=== PATIENT | female | born 1935 | race Caucasian/White ===

== ENCOUNTER → 2017-10-18 | Outpatient (CLI) | payer MEDICARE, BC ==
[~2017-10-18] MED LIST: APAP650 PO; ASPIR 8181 MG PO; CARDIZEM CD 18180 M3 PO; CRESTOR5 MG PO; ENALAPRIL MALEAT5 M1 PO; METAMUCIL PAC1 UDPKT PO; SAVAYSA15 MG PO; SIMVASTATIN40 MG PO; TRAMADOL 50 MG50 MG PO
--- NOTE | 2017-10-18 11:38 | 2DMMODE ---
[place] [address] 2 D/M-MODE ECHOCARDIOGRAM Name: WES EDWARD Room: [facility]#: [id number] Admission: 10/18/17 Attend Phys: Nav Roman, Discharge: Date of : 39 Date of Service: 10/18/17 1138 Report #: [id number] THIS REPORT FOR: //name// APPROVED REPORT Study performed: 10/18/2017 10:04:56 EXAM: Comprehensive 2D, Doppler, and color-flow Echocardiogram BSA: 1.57 HR: 79 bpm BP: 162/80 mmHg Other Information Study Quality: Good Indications Mitral Valve Disease 2D Dimensions LVEF(%): 68.83 (>50%) IVSd: 10.12 (7-11mm) LVOT Diam: 20.57 (18-24mm) LVDd: 40.39 mm PWd: 9.65 (7-11mm) Ascending Ao: 28.23 (22-36mm) LVDs: 25.00 (25-40mm) Aortic Root: 24.82 mm Santa's LVEF: 68.83 % Volumes Left Atrial Volume (Systole) LA ESV Index: 20.20 mL/m2 Aortic Valve AoV Peak Baljeet.: 1.13 m/s AO Peak Gr.: 5.09 mmHg LVOT Max P.83 mmHg AO Mean Gr.: 2.77 mmHg LVOT Mean P.33 mmHg LVOT Max V: 0.84 m/s AO V2 VTI: 25.04 cm LVOT Mean V: 0.53 m/s AMADEO (VTI): 2.68 cm2 LVOT V1 VTI: 20.22 cm Mitral Valve E/A Ratio: 1.09 MV Decel. Time: 203.05 ms MV E Max Baljeet.: 0.64 m/s MV PHT: 58.88 [place] [address] 2 D/M-MODE ECHOCARDIOGRAM Name: LINDSEYCASEYWES Room: [facility]#: [id number] Admission: 10/18/17 Attend Phys: Nav Roman, Discharge: Date of : 39 Date of Service: 10/18/17 1138 Report #: [id number] MVA (PHT): 3.74 cm2 TDI E/Lateral E': 4.92 E/Medial E': 7.11 Medial E' Baljeet.: 0.09 m/s Lateral E' Baljeet.: 0.13 m/s Pulmonary Valve PV Peak Baljeet.: 0.96 m/s PV Peak Gr.: 3.71 mmHg Tricuspid Valve TR Peak Gr.: 26.60 mmHg RVSP: 31.60 mmHg Left Ventricle The left ventricle is normal size. There is normal LV segmental wall motion. There is normal left ventricular wall thickness. Left ventricular systolic function is normal. The left ventricular ejection fraction is within the normal range. LVEF is 55-60%. The left ventricular diastolic function is normal. Right Ventricle The right ventricle is normal size. The right ventricular systolic function is normal. Atria The left atrium size is normal. The right atrium size is normal. Aortic Valve Mild aortic valve sclerosis. Mild aortic regurgitation. There is no aortic valvular stenosis. Mitral Valve The mitral valve is normal in structure. Mild to moderate mitral regurgitation. No evidence of mitral valve stenosis. Tricuspid Valve The tricuspid valve is normal in structure. Mild tricuspid regurgitation. The RVSP is __31.6 mmHg. Pulmonic Valve The pulmonary valve is normal in structure. There is no pulmonic valvular regurgitation. Great Vessels The aortic root is normal in size. IVC [place] [address] 2 D/M-MODE ECHOCARDIOGRAM Name: LINDSEYWES PEÑA Room: [facility] Cooper#: [id number] Admission: 10/18/17 Attend Phys: Nav Roman, Discharge: Date of : 39 Date of Service: 10/18/17 1138 Report #: [id number] collapses with >50% inspiration Pericardium There is no pericardial effusion. <Conclusion> The left ventricle is normal size. There is normal left ventricular wall thickness. Left ventricular systolic function is normal. The left ventricular ejection fraction is within the normal range. LVEF is 55-60%. The left ventricular diastolic function is normal. The right ventricle is normal size. The left atrium size is normal. Mild aortic valve sclerosis. Mild aortic regurgitation. There is no aortic valvular stenosis. The mitral valve is normal in structure. Mild to moderate mitral regurgitation. No evidence of mitral valve stenosis. The tricuspid valve is normal in structure. Mild tricuspid regurgitation. The RVSP is __31.6 mmHg. IVC is normal in size and collapses with >50% inspiration There is no pericardial effusion. There is normal LV segmental wall motion. <ELECTRONICALLY SIGNED> By: Colin Biggs MD, FACC 10/18/17 1138 1138 1138 Colin Biggs MD, FACC /INF
== END ==
LOC: M.CRD 10:00
DX: I08.3 Combined rheumatic disorders of mitral, aortic and tricuspid valves (principal)

== ENCOUNTER 2018-08-02 16:54 | Observation (INO) | payer MEDICARE, BC ==
[~2018-08-02] VITALS: Ht 157.5 cm; Wt 56.7 kg
[~2018-08-02 16:54] MED LIST changes: -APAP650 PO; -CARDIZEM CD 18180 M3 PO; -CRESTOR5 MG PO; -SAVAYSA15 MG PO
[2018-08-02 16:57] VITALS: BP 143/110
[2018-08-02] MEDS ORDERED: CRESTOR5 MG PO (17:02)
[2018-08-02] MEDS ORDERED: CARDIZEM CD 18180 M3 PO (17:03)
[2018-08-02] MEDS ORDERED: APAP650 PO (17:03)
[2018-08-02] MEDS ORDERED: SAVAYSA15 MG PO (17:03)
[2018-08-02 17:38] LABS: ABSOLUTE BASOPHILS 0.1 thou/uL (0.0-0.2); ABSOLUTE LYMPHOCYTES 1.3 thou/uL (0.8-5.3); ABSOLUTE MONOCYTES 0.6 thou/uL (0.0-1.2); ABSOLUTE NEUTROPHILS 4.6 thou/uL (1.6-8.1); BASOPHILS 0.8 %; EOSINOPHILS 0.7 %; HEMATOCRIT 42.2 % (37.0-47.0); MCH 32.2 pg (26.0-34.0); MCHC 33.3 g/dL (28.0-37.0); MCV 96.9 fL (80.0-100.0); MONOCYTES 9.4 %; NUCLEATED RBCS 0 /100WBC; PLATELET COUNT* 277 thou/uL (150-400); POLYS 69.1 %; RBC 4.36 mil/uL (4.20-5.00); RDW-CV 12.7 % (10.5-14.5); WBC 6.6 thou/uL (4.0-11.0)
[2018-08-02 17:45] LABS: ANION GAP 6 mmol/L (7-16); BUN 16 mg/dL (7-18); CALCIUM 9.6 mg/dL (8.5-10.1); CHLORIDE 102 mmol/L (98-107); CO2 29 mmol/L (21-32); CREATININE 0.9 mg/dL (0.6-1.3); GLUCOSE 95 mg/dL (70-99); POTASSIUM 4.2 mmol/L (3.5-5.1); SODIUM 137 mmol/L (136-145)
[2018-08-02 17:48] LABS: APTT 30.3 Seconds (25.0-31.3); INR 1.1; PROTIME 11.3 Seconds (9.20-11.50)
[2018-08-02 17:55] LABS: ALBUMIN 4.3 g/dL (3.4-5.0); ALKALINE PHOSPHATASE 65 U/L (46-116); LIPASE 164 U/L (73-393); NT-PRO BRAIN NAT PEPTIDE 707 pg/mL (<300); SGOT 20 U/L (15-37); SGPT 25 U/L (30-65); TOTAL BILIRUBIN 0.3 mg/dL (<0.1-1.0); TOTAL PROTEIN 8.4 g/dL (6.4-8.2); TROPONIN-I LEVEL <0.06 ng/mL (<0.06)
[2018-08-02 20:10] VITALS: BP 128/82
[2018-08-02 20:30] VITALS: BP 142/64
[2018-08-03] VITALS: BP 117/51
[2018-08-03 01:15] LABS: ALBUMIN 3.3 g/dL (3.4-5.0); CREATININE 0.9 mg/dL (0.6-1.3); MAGNESIUM 2.1 mg/dL (1.8-2.4); POTASSIUM 4.6 mmol/L (3.5-5.1); TOTAL BILIRUBIN 0.2 mg/dL (<0.1-1.0); TOTAL PROTEIN 6.2 g/dL (6.4-8.2)
--- NOTE | 2018-08-03 01:33 | NUR ---
PATIENT RESTED IN BED, NO ACUTE CHANGES. PATIENT DID NOT SHOW SIGNS OF DISTRESS. PATIENT DID NOT COMPALIN OF SOA OR WEAKNESS. PATIENT IS RUNNING SINUS RHYTHM. FALL PRECAUTIONS IN PLACE, CALL LIGHT WITH IN REACH, HOURLY ROUNDING OBSERVED.
[2018-08-03 02:22] LABS: HEMATOCRIT 35.9 % (37.0-47.0); MCH 32.3 pg (26.0-34.0); MCHC 33.3 g/dL (28.0-37.0); MCV 96.9 fL (80.0-100.0); MPV 9.6 fl. (7.2-11.1); RBC 3.7 mil/uL (4.20-5.00); RDW-CV 12.4 % (10.5-14.5); WBC 6.9 thou/uL (4.0-11.0)
[2018-08-03 04:00] VITALS: BP 126/50
[2018-08-03 08:00] VITALS: BP 127/68
[2018-08-03 12:06] VITALS: BP 139/52
--- NOTE | 2018-08-03 12:14 | NUR ---
Pt is A&O. Resides at home alone. Independent with ADLs. Pt continues to drive some, but states that her son is available to drive her if needed. Pt has a cleaning lady. No DME. No hx of HH or SNF. Goal is to return home at dc. Pt is hopeful to dc today. Pt scheduled to have an ultrasound today. No needs anticipated. Following.
[2018-08-03 12:25] VITALS: BP 142/89
--- NOTE | 2018-08-03 13:10 | NUR ---
ASSESSMENT CHARTED. AFEBRILE. PT CONVERTED TO NSR. DENIES CHEST PAIN. CARDIOLOGY SIGNED OFF AND D/C WITH SCRIPT. PT D/C AT 1315 THIS AFTERNOON. D/C PAPERWORK AND SCRIPT GIVEN AND ALL QUESTIONS ANSWERED.
--- NOTE | 2018-08-03 18:00 | EKG ---
[place] [address] ELECTROCARDIOGRAM REPORT Name: WES EDWARD Room: [address]#: [id number] Admission: 08/02/18 Attend Phys: Sultana Hagen MD Discharge: 08/03/18 Date of : 39 Report #: [id number] THIS REPORT FOR: //name// [facility] ED Test Date: 2018-08-02 Test Time: 16:59:37 Pat Name: WES EDWARD Department: Room: [facility] Gender: F Specialty Sales Consultant: : 1935 Requested By: Kathy Last Order Number: [id number] MD: Hola Huggins Measurements Intervals [place] Rate: 134 P: -80 AR: 139 QRS: 69 QRSD: 94 T: -26 QT: 256 QTc: 382 Interpretive Statements atrial flutter Repolarization abnormality, prob rate related Compared to ECG 11/09/2014 08:28:11 ST (T wave) deviation now present Sinus rhythm no longer present Electronically Signed On 08-03-2018 18:00:12 CDT by Hola Huggins [email or web address] <ELECTRONICALLY SIGNED> By: Hola Huggins MD, [facility] 08/03/18 1800 1659 1659 Hola Huggins MD, [facility] /EPI
== END 2018-08-03 13:16 | disposition home or self-care (01) ==
LOC: M.ERS 16:54 → M.TBA-ER 18:37 → M.2W 18:37
PROVIDERS: Personal Emergency Response Attendant; ADMIT Internal Medicine
DX: I48.0 Paroxysmal atrial fibrillation (principal); I10 Essential (primary) hypertension; E78.5 Hyperlipidemia, unspecified; F41.9 Anxiety disorder, unspecified; M19.90 Unspecified osteoarthritis, unspecified site; Z79.82 Long term (current) use of aspirin

== ENCOUNTER → 2018-08-29 | Outpatient (CLI) | payer MEDICARE, BC ==
[~2018-08-29] MED LIST changes: +APAP650 PO; +CARDIZEM CD 18180 M3 PO; +CRESTOR5 MG PO; +SAVAYSA15 MG PO
--- NOTE | 2018-08-29 15:10 | 2DMMODE ---
[place] [address] 2 D/M-MODE ECHOCARDIOGRAM Name: WES EDWARD Room: [facility]#: [id number] Admission: 08/29/18 Attend Phys: Meena Duval, Discharge: Date of : 39 Date of Service: 08/29/18 1510 Report #: [id number] THIS REPORT FOR: //name// APPROVED REPORT Study performed: 08/29/2018 13:07:23 EXAM: Comprehensive 2D, Doppler, and color-flow Echocardiogram Patient Location: Out-Patient Status: routine BSA: 1.56 HR: 70 bpm BP: 142/80 mmHg Other Information Study Quality: Good Indications Mitral Valve Disease Atrial Fibrillation 2D Dimensions IVSd: 10.21 (7-11mm) LVOT Diam: 20.15 (18-24mm) LVDd: 41.64 mm PWd: 9.18 (7-11mm) Ascending Ao: 24.82 (22-36mm) LVDs: 27.77 (25-40mm) Aortic Root: 26.82 mm Volumes Left Atrial Volume (Systole) LA ESV Index: 20.90 mL/m2 Aortic Valve AoV Peak Baljeet.: 1.01 m/s AO Peak Gr.: 4.12 mmHg LVOT Max P.76 mmHg AO Mean Gr.: 1.81 mmHg LVOT Mean P.36 mmHg LVOT Max V: 0.83 m/s AO V2 VTI: 20.02 cm LVOT Mean V: 0.54 m/s AMADEO (VTI): 3.32 cm2 LVOT V1 VTI: 20.87 cm AI Pondera: 2.65 m/s2 AI PHT: 447.15 ms Mitral Valve E/A Ratio: 1.16 [place] [address] 2 D/M-MODE ECHOCARDIOGRAM Name: WES EDWARD Room: [facility]#: [id number] Admission: 08/29/18 Attend Phys: Meena Duval, Discharge: Date of : 39 Date of Service: 08/29/18 1510 Report #: [id number] MV Decel. Time: 171.97 ms MV E Max Baljeet.: 0.71 m/s MV PHT: 49.87 ms MVA (PHT): 4.41 cm2 TDI E/Lateral E': 5.07 E/Medial E': 7.10 Medial E' Baljeet.: 0.10 m/s Lateral E' Baljeet.: 0.14 m/s Pulmonary Valve PV Peak Baljeet.: 0.91 m/s PV Peak Gr.: 3.29 mmHg Tricuspid Valve RAP Estimate: 5.00 mmHg TR Peak Gr.: 24.79 mmHg RVSP: 29.79 mmHg PA Pressure: 29.79 mmHg Left Ventricle The left ventricle is normal size. There is normal LV segmental wall motion. There is normal left ventricular wall thickness. Left ventricular systolic function is normal. The left ventricular ejection fraction is within the normal range. LVEF is 55-60%. The left ventricular diastolic function is normal. Right Ventricle The right ventricle is normal size. The right ventricular systolic function is normal. Atria The left atrium size is normal. The right atrium size is normal. Aortic Valve The aortic valve is normal in structure. Mild aortic regurgitation. There is no aortic valvular stenosis. Mitral Valve The mitral valve is normal in structure. Mild mitral regurgitation. No evidence of mitral valve stenosis. Tricuspid Valve The tricuspid valve is normal in structure. Mild tricuspid regurgitation. estimate pa pressure 40 [place] [address] 2 D/M-MODE ECHOCARDIOGRAM Name: WES EDWARD Room: [facility]#: [id number] Admission: 08/29/18 Attend Phys: Meena Duval, Discharge: Date of : 39 Date of Service: 08/29/18 1510 Report #: [id number] The pulmonary valve is normal in structure. Mild pulmonic regurgitation. Great Vessels The aortic root is normal in size. IVC is normal in size and collapses >50% with inspiration. Pericardium There is no pericardial effusion. <Conclusion> LVEF is 55-60%. Mild aortic regurgitation. Mild mitral regurgitation. Mild tricuspid regurgitation. estimate pa pressure 40 mm Hg <ELECTRONICALLY SIGNED> By: Hola Huggins MD, FACC 08/29/181509 09 09 Hola Huggins MD, FACC /INF
== END ==
LOC: M.CRD 12:37
DX: I08.3 Combined rheumatic disorders of mitral, aortic and tricuspid valves (principal); I48.0 Paroxysmal atrial fibrillation

== ENCOUNTER → 2020-04-22 | Outpatient (CLI) | payer MEDICARE, BC ==
--- NOTE | 2020-04-22 14:26 | 2DMMODE ---
[place] [address] 2 D/M-MODE ECHOCARDIOGRAM Name: WES EDWRAD Room: [facility]#: [id number] Admission: 04/22/20 Attend Phys: Meena Duval, Discharge: Date of : 39 Date of Service: 04/22/20 1426 Report #: [id number] THIS REPORT FOR: cc: Eugene Duran,Eugene Maradiaga,Hola Villarreal MD [facility] ~ APPROVED REPORT Study performed: 04/22/2020 13:07:05 EXAM: Comprehensive 2D, Doppler, and color-flow Echocardiogram Patient Location: Out-Patient BSA: 1.56 HR: 71 bpm BP: 105/55 mmHg Other Information Study Quality: Good Indications Mitral Valve Disease 2D Dimensions IVSd: 9.59 (7-11mm) LVOT Diam: 20.89 (18-24mm) LVDd: 41.18 mm PWd: 9.82 (7-11mm) Ascending Ao: 28.77 (22-36mm) LVDs: 28.33 (25-40mm) Aortic Root: 24.11 mm Volumes Left Atrial Volume (Systole) LA ESV Index: 14.50 mL/m2 Aortic Valve AoV Peak Baljeet.: 1.05 m/s AO Peak Gr.: 4.42 mmHg LVOT Max P.00 mmHg AO Mean Gr.: 2.28 mmHg LVOT Mean P.51 mmHg LVOT Max V: 0.87 m/s AO V2 VTI: 21.91 cm LVOT Mean V: 0.57 m/s AMADEO (VTI): 3.27 cm2 LVOT V1 VTI: 20.89 cm AI Cassia: 2.04 m/s2 AI PHT: 571.21 [place] [address] 2 D/M-MODE ECHOCARDIOGRAM Name: WES EDWARD Room: [facility]#: [id number] Admission: 04/22/20 Attend Phys: Meena Duval, Discharge: Date of : 39 Date of Service: 04/22/20 1426 Report #: [id number] Mitral Valve E/A Ratio: 0.93 MV Decel. Time: 192.69 ms MV E Max Baljeet.: 0.57 m/s MV PHT: 55.88 ms MVA (PHT): 3.94 cm2 TDI E/Lateral E': 4.07 E/Medial E': 5.70 Medial E' Baljeet.: 0.10 m/s Lateral E' Baljeet.: 0.14 m/s Pulmonary Valve PV Peak Baljeet.: 0.94 m/s PV Peak Gr.: 3.50 mmHg Tricuspid Valve RAP Estimate: 5.00 mmHg TR Peak Gr.: 23.66 mmHg RVSP: 28.66 mmHg PA Pressure: 28.66 mmHg Left Ventricle The left ventricle is normal size. There is normal LV segmental wall motion. There is normal left ventricular wall thickness. Left ventricular systolic function is normal. The left ventricular ejection fraction is within the normal range. LVEF is 55-60%. Grade I - abnormal relaxation pattern. Right Ventricle The right ventricle is normal size. The right ventricular systolic function is normal. Atria The left atrium size is normal. The right atrium size is normal. Aortic Valve The aortic valve is normal in structure. Mild aortic regurgitation. There is no aortic valvular stenosis. Mitral Valve The mitral valve is normal in structure. Mild mitral regurgitation. No evidence of mitral valve stenosis. Tricuspid Valve The tricuspid valve is normal in structure. Mild tricuspid regurgitation. estimated pa pressure 30 [place] [address] 2 D/M-MODE ECHOCARDIOGRAM Name: WES EDWARD Room: [facility]#: [id number] Admission: 04/22/20 Attend Phys: Meena Duval, Discharge: Date of : 39 Date of Service: 04/22/20 1426 Report #: [id number] Pulmonic Valve The pulmonary valve is normal in structure. Trace pulmonic regurgitation. Great Vessels The aortic root is normal in size. IVC is normal in size and collapses >50% with inspiration. Pericardium There is no pericardial effusion. <Conclusion> LVEF is 55-60%. Mild aortic regurgitation. Mild mitral regurgitation. <ELECTRONICALLY SIGNED> By: Hoal Huggins MD, [facility] 04/22/20 1426 1426 1426 Hola Huggins MD, FACC /INF
== END ==
LOC: M.CRD 13:00
PROVIDERS: ATTEND Nurse Practitioner
DX: I08.3 Combined rheumatic disorders of mitral, aortic and tricuspid valves (principal)

== ENCOUNTER 2020-08-15 10:58 | Emergency (ER) | payer MEDICARE, BC ==
[~2020-08-15] VITALS: Ht 157.5 cm; Wt 55.8 kg
[2020-08-15 11:17] LABS: ABSOLUTE BASOPHILS 0.1 thou/uL (0.0-0.2); ABSOLUTE LYMPHOCYTES 1.5 thou/uL (0.8-5.3); ABSOLUTE MONOCYTES 0.7 thou/uL (0.0-1.2); BASOPHILS 0.9 %; EOSINOPHILS 0.5 %; HEMATOCRIT 44.7 % (37.0-47.0); LYMPHOCYTES 18.3 %; MCH 31.3 pg (26.0-34.0); MCHC 33.5 g/dL (28.0-37.0); MCV 93.4 fL (80.0-100.0); MONOCYTES 8.2 %; MPV 8.1 fl. (7.2-11.1); NUCLEATED RBCS 0 /100WBC; PLATELET COUNT* 354 thou/uL (150-400); POLYS 72.1 %; RBC 4.79 mil/uL (4.20-5.00); RDW-CV 13.4 % (10.5-14.5); WBC 8.3 thou/uL (4.0-11.0)
[2020-08-15 11:28] LABS: CALCIUM 10.1 mg/dL (8.5-10.1); CREATININE 1.1 mg/dL (0.6-1.3); POTASSIUM 3.7 mmol/L (3.5-5.1)
[2020-08-15 11:34] LABS: APTT 31.6 Seconds (25.0-31.3); INR 1.1; PROTIME 11.5 Seconds (9.20-11.50)
[2020-08-15 11:42] LABS: ALBUMIN 4.4 g/dL (3.4-5.0); CK-MB MASS 0.5 ng/mL (<0.5-3.6); TOTAL BILIRUBIN 0.6 mg/dL (<0.1-1.0); TOTAL PROTEIN 8.7 g/dL (6.4-8.2)
[2020-08-15] MEDS ORDERED: FLECAINIDE ACET50 M2 PO (14:50)
[2020-08-15] MEDS ORDERED: CARDIZEM LA240 M1 PO (14:51)
[2020-08-15 15:08] VITALS: BP 135/70
--- NOTE | 2020-08-16 12:49 | EKG ---
[place] [address] ELECTROCARDIOGRAM REPORT Name: WES EDWARD Room: [facility]#: [id number] Admission: 08/15/20 Attend Phys: Discharge: 08/15/20 Date of : 39 Date of Service: 08/15/20 1103 Report #: [id number] THIS REPORT FOR: //name// [facility] ED Test Date: 2020-08-15 Test Time: 11:03:50 Pat Name: WES EDWARD Department: Room: Gender: Trash Man: : 1935 Requested By: Mook Neely Order Number: [id number] MD: Chalo Richard Measurements Intervals [place] Rate: 97 P: MD: QRS: 67 QRSD: 100 T: -64 QT: 357 QTc: 454 Interpretive Statements Atrial flutter Compared to ECG 08/02/2018 16:59:37 Rate response improved Electronically Signed On 08-16-2020 12:49:00 [employer] by Chalo Richard [email or web address] <ELECTRONICALLY SIGNED> By: Chalo Richard MD, [facility] 08/16/20 1249 1103 02 Chalo Richard MD, FAC /EPI
--- NOTE | 2020-08-16 13:00 | CON ---
[address] [address] CONSULTATION Name: WES EDWARD Room: [facility] Kenneth#: [id number] Admission: 08/15/20 Attend Phys: Discharge: 08/15/20 Date of : 39 Report #: [id number] THIS REPORT FOR: //name// cc: FAM - No family physician/PCP FAM - No family physician/PCP ~ INDICATION: Atrial flutter with rapid ventricular response rate. HISTORY OF PRESENT ILLNESS: The patient is a very pleasant 85-year-old female who is well known to myself. She has a history of paroxysmal atrial fibrillation. She had been maintaining sinus rhythm on diltiazem alone. She is chronically anticoagulated and having no bleeding problems. Over the last few days, she has had increased lightheadedness, dizziness, palpitations and dyspnea. She was seen by her primary care provider and noted to be in atrial flutter with a rapid ventricular response. The patient presents to the Emergency Room despite increased dose of diltiazem with continued symptoms. On telemetry monitoring, she has atrial flutter with variable AV conduction. The rate appears reasonably well controlled when she is at rest. She is not having chest pain. She does not have shortness of breath at rest. She is without other cardiac complaint. PAST MEDICAL HISTORY: 1. Paroxysmal atrial fibrillation. 2. Paroxysmal atrial flutter now. 3. Hypertension. 4. Dyslipidemia. 5. Non-rheumatic mitral valve regurgitation. PAST SURGICAL HISTORY: Appendectomy. FAMILY HISTORY: Noncontributory. SOCIAL HISTORY: The patient is a lifelong nonsmoker. She does not drink alcohol. ALLERGIES: CELEBREX, ENALAPRIL, TRAMADOL, CODEINE, AND PRAVASTATIN. CURRENT HOME MEDICATIONS: Eliquis 5 mg p.o. b.i.d., diltiazem 240 mg p.o. b.i.d., Colace 100 mg b.i.d., furosemide 20 mg tablet as needed, Neurontin 100 mg daily, Ativan 0.5 mg a half a tablet to a tablet q. 8 hours p.r.n., potassium chloride 10 mEq with furosemide, Crestor 10 mg daily. REVIEW OF SYSTEMS: She denies fever, chills, sweats. She denies any bleeding problems. She denies nosebleeds or GI bleeding. She has had no visual changes. She denies chest pain, claudication, orthopnea or paroxysmal nocturnal dyspnea. She is not having edema. She has dyspnea on exertion, but no shortness of breath. She denies bleeding problems. She does have some easy bruising. She is not having nausea, vomiting, or diarrhea. She denies [place] [address] CONSULTATION Name: WES EDWARD [id number] Admission: 08/15/20 Attend Phys: Discharge: 08/15/20 Date of : 39 Report #: [id number] She is not having any focal weakness or paralysis. She has anxiety, but no depression. She has medical allergies as outlined above. She denies seasonal allergies. PHYSICAL EXAMINATION: VITAL SIGNS: Blood pressure 105/65, pulse is in the 70s-80s and irregular. GENERAL: This is a thin, pleasant, elderly female in no distress. Mood and affect appropriate. HEENT: Head is normocephalic, atraumatic. Extraocular muscles intact. Mucous membranes are moist. NECK: Shows no jugular venous distention. There are no carotid bruits. CHEST: Reveals clear lung pitts without wheezes or rales. CARDIAC: Reveals an irregular rhythm that is rate controlled. I do not appreciate gallop or murmur. ABDOMEN: Reveals normal bowel sounds. The abdomen is soft, nontender. EXTREMITIES: Shows no edema. SKIN: Dry. Telemetry monitoring shows atrial flutter. EKG shows atrial flutter with variable AV conduction. I do not appreciate acute changes. LABORATORY DATA: Labs are reviewed. Electrolytes are within normal limits. BUN 14, creatinine 1.1, serum glucose 103. LFTs are within normal limits. Troponin is less than 0.06. NT-proBNP is 1671. Coags are within normal limits. White blood cell count 8.3, hemoglobin 15.0, platelet count 354,000. Chest x-ray shows no acute cardiopulmonary abnormality. IMPRESSION AND RECOMMENDATIONS: 1. Atrial flutter with rapid ventricular response rate. The patient's heart rate appears somewhat improved with increased dose of diltiazem from her primary provider. At this point in time, I will give bolus of flecainide in an attempt to revert to sinus rhythm. Would recommend flecainide 50 mg b.i.d. as maintenance therapy. Continue diltiazem and Eliquis at current doses. 2. Paroxysmal atrial fibrillation. The patient is chronically anticoagulated and having no bleeding problems. Presently, she is in atrial flutter. 3. Hypertension. Blood pressure adequately controlled on home regimen. 4. Hyperlipidemia. Continue Crestor at current dose. <ELECTRONICALLY SIGNED> By: Chalo Richard MD, FACC 08/16/20 [address] [facility] Mimi Richard MD, FACC /nt
== END 2020-08-15 15:10 | disposition home or self-care (01) ==
LOC: M.ERS 10:58
PROVIDERS: Family Medicine
DX: I48.0 Paroxysmal atrial fibrillation (principal); E78.5 Hyperlipidemia, unspecified; I10 Essential (primary) hypertension; I48.92 Unspecified atrial flutter; M19.90 Unspecified osteoarthritis, unspecified site; Z88.5 Allergy status to narcotic agent; Z88.2 Allergy status to sulfonamides; Z88.6 Allergy status to analgesic agent; Z88.8 Allergy status to other drugs, medicaments and biological substances; Z90.49 Acquired absence of other specified parts of digestive tract